=== PATIENT | male | born 1985 | race Caucasian/White ===

== ENCOUNTER 2016-08-15 22:48 | Emergency (ER) | payer SELFPAY ==
[~2016-08-15] VITALS: Ht 180.3 cm; Wt 96.5 kg
[2016-08-15 22:53] VITALS: Ht 180.3 cm; Wt 96.5 kg
[2016-08-15] MEDS ORDERED: DIPHENHYDRAMINE 50 MG INJ IV STA (23:26)
[2016-08-15] MEDS ORDERED: FAMOTIDINE 20 MG INJ IV STA (23:26)
[2016-08-15] MEDS ORDERED: EPINEPHrine 1 MG INJ IM STA (23:26)
[2016-08-15] MEDS ORDERED: METHYLPREDNISOLONE 125 MG INJ IV STA (23:26)
[2016-08-15] MEDS ORDERED: DIPH25TA68 PO (23:49)
[2016-08-16] MEDS ORDERED: PRED20TA PO (02:00)
[2016-08-16] MEDS ORDERED: BEN25 PO (02:00)
--- NOTE | 2016-08-16 02:03 | ERD ---
ER Documentation Chief Complaint Date/Time DATE: 08/16/16 TIME: 02:01 Chief Complaint drank carrot juice an hour ago; has diff swallowing; redness on onur legs HPI This is a 31-year-old male who is allergic to carrots and he actually drank some juice that I carried using it. One hour later he was having some diffuse itching or hives all over his body was having a little bit difficult time swallowing. Had no shortness of breath no tongue swelling or lip swelling no eye swelling. He said he had nausea vomiting. He said this is the typical reaction that will occur when he has contact with carrots or care and juice. He is in no distress ROS All systems reviewed and are negative except as per history of present illness. Medications Home Meds Active Scripts Diphenhydramine Hcl* (Benadryl*) 25 Mg Cap, 25 MG PO Q6, #30 CAP Prov:MARLYS GUPTA DO 08/16/16 Prednisone* (Prednisone*) 20 Mg Tab, 60 MG PO DAILY for 5 Days, TAB Prov:MARLYS GUPTA DO 08/16/16 Reported Medications Diphenhydramine Hcl (Benadryl Allergy) 25 Mg Tablet, 25 MG PO, TAB 08/15/16 Allergies Allergies: Coded Allergies: apple (Verified Allergy, Unknown, 08/15/16) kiwi (Verified Allergy, Unknown, 08/15/16) Uncoded Allergies: CARROT JUICE (Allergy, Mild, 08/15/16) PMhx/Soc Medical and Surgical Hx: pt denies Medical Hx, pt denies Surgical Hx History of Surgery: No Anesthesia Reaction: No Hx Neurological Disorder: No Hx Respiratory Disorders: No Hx Cardiac Disorders: No Hx Psychiatric Problems: No Hx Miscellaneous Medical Probl: No Hx Alcohol Use: No Hx Substance Use: No Hx Tobacco Use: No Smoking Status: Never smoker FmHx Family History: No coronary disease Physical Exam Vitals Vital Signs Date Time Temp Pulse Resp B/P Pulse Ox O2 Delivery O2 Flow Rate FiO2 08/16/16 01:00 77 18 121/73 100 Nasal Cannula 08/15/16 23:50 98.1 69 20 104/83 100 Room Air 2.0 08/15/16 22:53 96.5 97 20 116/69 86 Physical Exam Const: Well-developed, well-nourished Head: Atraumatic, normocephalic Eyes: Normal Conjunctiva, PERRLA, EOMI, normal sclera, no nystagmus no swelling of the lips tongue or face ENT: Normal External Ears, Nose and Mouth, moist mucus membranes. Neck: Full range of motion. No meningismus, no lymphadenopathy. Resp: Clear to auscultation bilaterally, no wheezing, rhonchi, rales, no respiratory distress no wheezing Cardio: Regular rate and rhythm, no murmurs, S1 S2 present Abd: Soft, non tender x 4, non distended. Normal bowel sounds, no guarding or rebound, no pulsitile abdominal masses or bruits Skin: Mild diffuse hives to his extremities and trunk Back: No midline or flank tenderness Ext: No cyanosis, or edema, FROM x 4, normal inspection, neurovascularly intact x 4 Neur: Awake and alert, STR 5/5 x 4, sensation intact x 4, no focal findings, cerebellum intact Psych: Normal Mood and Affect Results 24 hrs Current Medications Medications (Trade) Dose Ordered Sig/Niko Route PRN Reason Start Time Stop Time Status Last Admin Dose Admin Diphenhydramine HCl (Benadryl) 50 mg ONCE STAT IV 08/15/16 23:26 08/15/16 23:27 DC 08/15/16 23:45 Epinephrine (EPINEPHrine) 0.3 mg ONCE STAT IM 08/15/16 23:26 08/15/16 23:27 DC 08/15/16 23:44 Famotidine (Pepcid Iv) 20 mg ONCE STAT IV 08/15/16 23:26 08/15/16 23:27 DC 08/15/16 23:44 Methylprednisolone Sodium Succinate (Solu-Medrol) 125 mg ONCE STAT IV 08/15/16 23:26 08/15/16 23:27 DC 08/15/16 23:45 Procedures/MDM After epinephrine, Benadryl, Solu-Medrol, Pepcid the patient is doing much better after observation for a few hours. He has no trouble swallowing or wheezing or difficulty breathing. His rash is completely resolved Departure Diagnosis: Primary Impression: Allergic reaction Encounter type: initial encounter Qualified Code: T78.40XA - Allergic reaction, initial encounter Condition: Stable Patient Instructions: Allergic Reaction, Drug Referrals: NO PRIMARY,CARE PHYSICIAN (PCP) MARLYS GUPTA DO Aug 16, 2016 02:03
[2016-08-16 03:07] VITALS: BP 123/89; PULSE 71; RESP 18; TEMP 98.2
== END 2016-08-16 03:16 | disposition home or self-care (01) ==
LOC: E/R 22:48
DX: L53.9 Erythematous condition, unspecified (principal); T78.1XXA Other adverse food reactions, not elsewhere classified, initial encounter
CPT/HCPCS: 96372; 96374; 96375; 99284; J0171; J1200; J2930